=== PATIENT | male | born 1940 | race Caucasian/White ===

== ENCOUNTER → 2020-02-29 | Outpatient (CLI) | payer MEDICARE, BC ==
[~2020-02-29] MED LIST: AMLO5TAB4 PO; Aspirin PO; DOXY100T PO; GABA600T7 PO; HYDR-2765 PO; HYDR12.58 PO; LISI-334 PO; LISI20TA PO; SERT100T PO; SERT100T8 PO; TRAZ-125 PO
--- NOTE | 2020-02-29 17:22 | RAD ---
FOOT RIGHT 3V 02/29/2020 12:00 AM INDICATION: Right foot pain, difficulty walking COMPARISON: None available. TECHNIQUE: 3 views of the right foot are provided. FINDINGS/ IMPRESSION: 1. No acute fracture or dislocation. 2. Suggestion of a remote healed fracture involving the mid shaft of the proximal phalanx of the fourth digit. Interphalangeal joint space narrowing suggestive of mild osteoarthrosis. 3. Bone mineralization is within normal limits. No radiopaque foreign body. 4. Vascular secretions are present. 5. Plantar calcaneal enthesophyte noted. Electronically signed by: Xuan Baldwin MD (02/29/2020 5:19 PM) CHRISTINE
== END ==
LOC: DXRAD 13:06
PROVIDERS: ATTEND Family Medicine
DX: M77.31 Calcaneal spur, right foot (principal)
CPT/HCPCS: 73630